=== PATIENT | male | born 1965 | race Caucasian/White ===

== ENCOUNTER 2016-12-10 12:29 | Emergency (ER) | payer MEDICARE, MEDICAID ==
[~2016-12-10] VITALS: Ht 180.3 cm; Wt 82.2 kg
[~2016-12-10 12:29] MED LIST: AMLO10TA2 PO; BLOOD PRESSURE MED; HYDR-3240 PO; METO50TA4 PO
[2016-12-10] MEDS ORDERED: SERT100T PO (13:46)
[2016-12-10] MEDS ORDERED: BENA40TA2 PO (13:46)
[2016-12-10] MEDS ORDERED: SODIUM CHLORIDE 0.9% 1,000ML IVBOLUS ONE (14:00)
[2016-12-10] MEDS ORDERED: SODIUM CHLORIDE FLUSH 10ML SYR IVF ONE (14:00)
[2016-12-10 14:33] LABS: BLOOD UREA NITROGEN 9 mg/dL (7-18)
[2016-12-10 14:37] LABS: ASPARTATE AMINO TRANSFERASE 119 U/L (15-37)
[2016-12-10 15:10] VITALS: BP 165/106
== END 2016-12-10 15:19 | disposition home or self-care (01) ==
LOC: ED 13:53
DX: S43.51XA Sprain of right acromioclavicular joint, initial encounter (principal); I10 Essential (primary) hypertension; K75.9 Inflammatory liver disease, unspecified; W19.XXXA Unspecified fall, initial encounter; Y93.89 Activity, other specified; Y92.89 Other specified places as the place of occurrence of the external cause; Y99.8 Other external cause status
CPT/HCPCS: 36415; 73030; 80053; 85025; 85610; 85730; 93005; 96360; 99285; J7030